=== PATIENT | male | born 1955 | race Caucasian/White ===

== ENCOUNTER 2020-07-06 09:16 | Outpatient (REF) | payer OTHER, SELFPAY ==
[2020-07-06 12:17] LABS: Microalbum/Creatinine Ratio Ur 85.7 ug/mg cr
[2020-07-06 12:44] LABS: Alanine Aminotransferase 32 U/L (0-40); Albumin Level 4.4 g/dL (3.5-5.0); Alkaline Phosphatase 76 U/L (39-117); Anion Gap 15 (12-20); Aspartate Amino Transferase 20 U/L (5-37); Bilirubin Total 1.2 mg/dL (0.0-1.0); Blood Urea Nitrogen 20 mg/dL (9-16); Carbon Dioxide 24 mmol/L (22-29); Chloride 100 mmol/L (96-108); Cholesterol 184 mg/dL; Estimated Glomerular Filt Rate > 60; Glucose Fasting 286 mg/dL (60-99); HDL Cholesterol 35 mg/dL; LDL Cholesterol Calculated 116 mg/dl; Potassium 4.4 mmol/L (3.3-5.1); Sodium 135 mmol/L (135-145); Total Protein 7.6 g/dL (6.5-8.0); Triglycerides 166 mg/dL
[2020-07-06 12:45] LABS: Prostate Specific Antigen Scr 2.53 ng/mL (<0.05-4.0); TSH reflex Free T4 1.09 uIU/mL (0.32-4.0)
== END 2020-07-06 09:17 | disposition home or self-care (01) ==
LOC: HO.WFDLDS 09:16
PROVIDERS: Visit Provider Family Medicine
DX: Z00.00 Encounter for general adult medical examination without abnormal findings (principal); E11.9 Type 2 diabetes mellitus without complications; I10 Essential (primary) hypertension; Z12.5 Encounter for screening for malignant neoplasm of prostate
CPT/HCPCS: 36415; 80053; 80061; 82043; 84153; 84443

== ENCOUNTER → 2020-07-20 11:09 | Outpatient (BNVA) | payer OTHER, SELFPAY | PROVIDERS: PCP Family Medicine; Visit Provider Physician Assistant ==

== ENCOUNTER 2020-09-09 09:43 | Day surgery (SDC) | payer OTHER, SELFPAY ==
[2020-09-03 10:22] VITALS: BMI 32.8
--- NOTE | 2020-09-07 15:17 | HO.ANESPROP2 ---
Documented by User: Jasmyne Damon 09/07/20 15:20 HPI - Anesthesia Eval Consult details Narrative: 64yo M for Upper Endoscopy and Colonoscopy with Cotton PMFSH Active Problems Active Problems: All Active Problems (Updated 09/02/20 @ 14:19 by Peggy Gibson) Laboratory examination ordered as part of a routine general medical examination (Acute) Diabetes type 2, controlled (Acute) Sleep apnea (Acute) Colon polyps (Acute) Barretts esophagus (Acute) COPD (chronic obstructive pulmonary disease) (Acute) Insomnia (Acute) Screening for prostate cancer (Acute) Former smoker (Acute) Exposure to asbestos (Acute) Annual physical exam (Acute) Hyperlipidemia (Acute) Class 1 obesity with body mass index (BMI) of 32.0 to 32.9 in adult (Acute) Paronychia of finger (Acute) Tetanus toxoid inoculation (Acute) Barretts esophagus (Acute) Colon polyps (Acute) Past Medical History Medical History Barretts esophagus Class 1 obesity with body mass index (BMI) of 32.0 to 32.9 in adult Colon polyps COPD (chronic obstructive pulmonary disease) Diabetes Elevated cholesterol Sleep apnea Family History Family History Father No problems noted. Mother No problems noted. Daughter Breast cancer Surgical History Surgical History History of cholecystectomy Social History Social History Household Members: Spouse Household Members Other:: Raising 6 &10-y/0 grandchildren- of his daughter @34 breast CA Alcohol intake: never Advance Directives Information Provided: No Current occupational status: retired Meds Allergies Allergy/AdvReac Type Severity Reaction Status Date / Time No Known Allergies Allergy Verified 09/09/20 10:26 Home Medications Medication Instructions Recorded Confirmed Last Taken Type atorvastatin 40 mg tablet 40 mg PO DAILY 06/23/20 09/03/20 Unknown History blood sugar diagnostic #10 ea 06/23/20 07/20/20 Unknown History empagliflozin 10 mg tablet 10 mg PO DAILY 06/23/20 09/03/20 Unknown History metformin 500 mg tablet 1,000 mg PO BID 06/23/20 09/03/20 Unknown History omeprazole 40 mg capsule,delayed 40 mg PO DAILY 06/23/20 09/03/20 Unknown History release pen needle, diabetic 32 gauge x #50 ea 06/23/20 07/20/20 Unknown History sertraline 50 mg tablet 50 mg PO DAILY 06/23/20 09/03/20 Unknown History insulin glargine U-300 conc unit SUBCUT 09/09/20 09/09/20 Unknown History [Toujeo Max U-300 SoloStar] Exam Exam Date and Time: September 07, 2020 151 Height,Weight and Vital Signs: Height 5 ft 10 in Weight 103.589 kg Pertinent Lab Results Pertinent Lab Results: Laboratory Tests 07/06/20 09:25 Sodium 135 Potassium 4.4 Chloride 100 Carbon Dioxide 24 BUN 20 H Creatinine 0.89 Assessment and Plan Assessment Anesthesia Assessment: Chart Reviewed Documented by User: David Jacobsen MD 09/09/20 10:27 [facility] Past Medical History Medical History Barretts esophagus Class 1 obesity with body mass index (BMI) of 32.0 to 32.9 in adult Colon polyps COPD (chronic obstructive pulmonary disease) Diabetes Elevated cholesterol Sleep apnea Family History Family History Father No problems noted. Mother No problems noted. Daughter Breast cancer Surgical History Surgical History History of cholecystectomy Social History Social History Household Members: Spouse Household Members Other:: Raising 6 &10-y/0 grandchildren- of his daughter @34 breast CA Alcohol intake: never Advance Directives Information Provided: No Current occupational status: retired [employer] Allergies Allergy/AdvReac Type Severity Reaction Status Date / Time No Known Allergies Allergy Verified 09/09/20 10:26 Home Medications Medication Instructions Recorded Confirmed Last Taken Type atorvastatin 40 mg tablet 40 mg PO DAILY 06/23/20 09/03/20 Unknown History blood sugar diagnostic #10 ea 06/23/20 07/20/20 Unknown History empagliflozin 10 mg tablet 10 mg PO DAILY 06/23/20 09/03/20 Unknown History metformin 500 mg tablet 1,000 mg PO BID 06/23/20 09/03/20 Unknown History omeprazole 40 mg capsule,delayed 40 mg PO DAILY 06/23/20 09/03/20 Unknown History release pen needle, diabetic 32 gauge x #50 ea 06/23/20 07/20/20 Unknown History sertraline 50 mg tablet 50 mg PO DAILY 06/23/20 09/03/20 Unknown History insulin glargine U-300 conc unit SUBCUT 09/09/20 09/09/20 Unknown History [Toujeo Max U-300 SoloStar] Exam Airway Mallampati Class: II TM Dist: >3cm Neck ROM: Full Loose/Missing/Broken Teeth: No Heart: RRR Assessment and Plan Assessment Anesthesia Assessment: Anesthesia Plan Discussed and Chart Reviewed Final Anesthetic Review NPO: Yes ASA Class: III Final Preanesthetic Review: No Changes in Pt Med Stat, Meds/Allgs Chart Reviewed, Consent Obtained/Reviewed and Anes Risks/Benef Reviewed Patient Risk: Low Procedure Risk: Low Anesthetic Plan Anesthetic Plan: MAC: Disposition: Standard PACU
[2020-09-09 10:30] VITALS: BP 126/75; PULSE 90; RESP 18; TEMP 36.2; O2SAT 97
[2020-09-09 10:33] LABS: Glucose, Whole Blood 115 mg/dL (60-115)
--- NOTE | 2020-09-09 10:35 | MHC.SHP ---
Pre-Procedural Eval Section B Chief Complaint: hx colonic polyps,stuart's Relevant Family History (Specify if Yes): No Relevant Social History: None Present Medications: see Short Stay Collaborative assessment Medical History: Significant History (Barretts esophagus Class 1 obesity with body mass index (BMI) of 32.0 to 32.9 in adult Colon polyps COPD (chronic obstructive pulmonary disease) Diabetes Elevated cholesterol Sleep apnea) History of Previous Operations: Relevant previous surgery/procedure and date(s) (cholecystectomy) Allergies: Allergies Allergy/AdvReac Type Severity Reaction Status Date / Time No Known Allergies Allergy Verified 09/09/20 10:26 Review of Systems Sugical H&P ROS: Negative: Constitution, Cardiovascular, Respiratory, Neurological, Psychiatric, Hem-Onc, Allergic/Immunologic, Gastrointestinal, Genitourinary, Musculoskeletal, Integumentary, Endocrine and Eyes/Ears/Nose/Throat Exam Surgical H&P Exam: Normal: HEENT, Normal: Heart, Normal: Lungs, Normal: Extremities, Normal: Abdomen, Normal: Skin and Normal: Neurological Plan Diagnosis/Plan: Unchanged I have reviewed the history and physical and performed a pertinent physical examination on my patient. No changes have occurred unless specified.
[2020-09-09] MEDS: Lactated Ringers 1,000 ML 100 ML IVCONT (10:48)
--- NOTE | 2020-09-09 11:19 | P.BOP_ITS ---
Brief Operative Note Date of Service: 09/09/20 Pre-op diagnosis: barretts, hx of polyps Post-op diagnosis: same Procedure: see op note Surgeon: Sammi Cardona MD Anesthesia: MAC Was an Manager Physical used for this Procedure?: No Estimated blood loss (mL): 0 Condition: stable Disposition: PACU
--- NOTE | 2020-09-09 11:20 | P.OP_ITS ---
Operative Note Operative Note Date of Service: 09/09/20 Narrative: Operative Information Procedure Description: EGD, Colonoscopy FLEXIBLE TRANSORAL UPPER GASTROINTESTINAL ENDOSCOPY AND COLONOSCOPY PROCEDURE NOTE UPPER ENDOSCOPY Consent: Indications for the procedure and potential complications of bleeding, perforation, reaction to medications and missed diagnosis were discussed with the patient and informed consent was obtained. Instrument: Olympus GIF H 190 J mid size upper endoscope Monitoring: Vital signs and clinical assessment, continuous EKG monitoring, Pulse oximetry, Carbon Dioxide monitoring and blood pressure monitoring were done throughout the procedure. Procedure: The patient was placed in the left lateral decubitis position and pre-procedure medications were administered and a bite block was placed. The endoscope was inserted into the mouth and advanced under direct vision to the third part of duodenum. A careful inspection was made as the upper endoscope was withdrawn including a retroflexed examination of the proximal stomach; Findings and interventions are described below. Findings: Larynx:normal Esophagus: GE junction at 38 cm, diaphragm hiatus at 40 cm, consistent with 2 cm sliding hiatal hernia. islands of salmon pink mucosa noted, WATS brushings taken as well as biopsy. There was some streaky erythema consistent with LA grade B esophagitis. Stomach: Patchy erythema. Biopsies were obtained. Grade 2 flap valve on retroflexed examination of the cardia. Duodenum: Normal bulb and descending duodenum, Intervention: Biopsies as noted above, brushings for WATS3D COLONOSCOPY Instrument: Olympus variable stiffness pediatric scope 190L Colonoscopy Monitoring: Vital signs and clinical assessment, continuous EKG monitoring, Pulse oximetry, Carbon Dioxide monitoring and blood pressure monitoring were done throughout the procedure. Colon withdrawal time was 12 minutes. Procedure: The patient was placed in the left lateral decubitis position and pre-procedure medications were administered. After a digital rectal examination of the ano-rectum, the video colonoscope was inserted into the rectum and advanced through the colon to the cecum/TI. The colonoscope was slowly withdrawn in a retrograde panoramic fashion and the colon mucosa was carefully examined including a retroflexed view of the rectum. Findings and interventions are described below. Procedure Difficulty:moderate Findings: Terminal Ileum-normal Cecum: 5-6 mm sessile polyp removed with forceps Ascending Colon: normal Transverse Colon -normal Descending Colon:normal Sigmoid Colon: 8-9 mm sessile polyp removed with snare, cold, mild diverticulosis noted Rectum: Retroflexion with small internal hemorrhoids, grade I, x2 sessile polyps 6-9 mm removed with cold snare. Anorectum - normal Colon preparation: Fowler Bowel Preparation Scale Right colon; 2 Transverse colon: 2 Left colon; 2 (0 = Unprepared colon segment with mucosa not seen due to solid stool that cannot be cleared. 1 = Portion of mucosa of the colon segment seen, but other areas of the colon segment not well seen due to staining, residual stool and/or opaque liquid. 2 = Minor amount of residual staining, small fragments of stool and/or opaque liquid, but mucosa of colon segment seen well. 3 = Entire mucosa of colon segment seen well with no residual staining, small fragments of stool or opaque liquid) Impression and Post Procedure Diagnosis: Endoscopy Findings: barretts esophagus hiatal hernia esophagitis gastritis Colonoscopy Findings: polyps internal hemorrhoids diverticular disease Plan: Await Pathology results Repeat Colonoscopy in 5 years or earlier if clinically indicated High fiber diet leaflet avoid straining at stool, epsom salts and sitz bath, anusol supps or cream prn eval clinical sx of GERD, if symptomatic then change PPI to pantoprazole repeat EGD pending path, if no dysplasia then 3 yrs Above findings were reviewed with the patient and relevant handouts were provided if indicated.
[2020-09-09 12:29] VITALS: BP 91/55; PULSE 76; RESP 16; TEMP 36.6; O2SAT 99
[2020-09-09 12:44] VITALS: BP 105/64; PULSE 83; RESP 18; TEMP 36.7; O2SAT 97
[2020-09-09 12:49] VITALS: BP 104/54; PULSE 85; RESP 18; O2SAT 97
== END 2020-09-09 13:20 | disposition home or self-care (01) ==
PROVIDERS: PCP Family Medicine; Visit Provider Internal Medicine Gastroenterology
PROC: (CPT 45385; principal; 2020-09-09 11:20)
DX: Z12.11 Encounter for screening for malignant neoplasm of colon (principal); Z86.010 Personal history of colon polyps; D12.5 Benign neoplasm of sigmoid colon; K63.5 Polyp of colon; K62.1 Rectal polyp; K57.30 Diverticulosis of large intestine without perforation or abscess without bleeding; K64.0 First degree hemorrhoids; K22.70 Barrett's esophagus without dysplasia; K29.50 Unspecified chronic gastritis without bleeding; K20.80 Other esophagitis without bleeding; K44.9 Diaphragmatic hernia without obstruction or gangrene; J44.9 Chronic obstructive pulmonary disease, unspecified; G47.30 Sleep apnea, unspecified; E11.9 Type 2 diabetes mellitus without complications; E66.9 Obesity, unspecified; Z68.32 Body mass index [BMI] 32.0-32.9, adult; Z79.4 Long term (current) use of insulin; Z79.51 Long term (current) use of inhaled steroids; Z90.49 Acquired absence of other specified parts of digestive tract; Z79.899 Other long term (current) drug therapy; Z87.891 Personal history of nicotine dependence
CPT/HCPCS: 45385; 45380; 43239; 82947; 88305; 88342

== ENCOUNTER → 2020-09-21 11:58 | Outpatient (BNVA) | payer OTHER, SELFPAY | PROVIDERS: Visit Provider Physician Assistant ==

== ENCOUNTER 2020-11-02 10:44 | Outpatient (REF) | payer MEDICARE, OTHER, SELFPAY ==
[2020-11-02 13:29] LABS: MANUAL DIFF FLAG NO
[2020-11-02 13:34] LABS: Basophils Percent Auto 0.4 % (0-2); Eosinophils Absolute Auto 0.2 X10*3/uL (0.0-0.4); Eosinophils Percent Auto 1.5 % (0-4); Hematocrit 44.1 % (42-52); Hemoglobin 14.1 g/dl (14.0-18.0); Imm Gran Abs Auto 0.06 X10*3/uL (0.00-0.03); Imm Gran Pct Auto 0.6 % (0.0-0.4); Lymphocytes Absolute Auto 1.2 X10*3/uL (1.2-4.9); Lymphocytes Percent Auto 12.4 % (20-40); Mean Corpuscular Hemoglobin 27.8 pg (27.0-33.0); Mean Corpuscular Volume 86.8 fL (80-98); Mean Platelet Volume 10.8 fL (9.4-12.4); Monocytes Absolute Auto 0.8 X10*3/uL (0.1-1.2); Monocytes Percent Auto 7.9 % (2-11); Neutrophils Absolute Auto 7.8 X10*3/uL (2.0-8.3); Neutrophils Percent Auto 77.2 % (45-73); Platelet Count 258 X10*3/uL (160-400); Red Blood Count 5.08 X10*6/uL (4.60-5.80); Red Cell Distribution Width 12.9 % (11.0-16.0)
[2020-11-02 13:42] LABS: Alanine Aminotransferase 27 U/L (0-40); Albumin Level 4.4 g/dL (3.5-5.0); Alkaline Phosphatase 98 U/L (39-117); Anion Gap 14 (12-20); Aspartate Amino Transferase 22 U/L (5-37); Bilirubin Total 0.7 mg/dL (0.0-1.0); Blood Urea Nitrogen 18 mg/dL (9-16); Calcium 10.3 mg/dL (8.4-10.2); Carbon Dioxide 29 mmol/L (22-29); Chloride 99 mmol/L (96-108); Estimated Glomerular Filt Rate > 60; Glucose Random 147 mg/dL (60-115); Potassium 5.2 mmol/L (3.3-5.1); Sodium 137 mmol/L (135-145); Total Protein 8.5 g/dL (6.5-8.0)
== END 2020-11-02 10:45 | disposition home or self-care (01) ==
LOC: HO.WFDLDS 10:44
PROVIDERS: Visit Provider Physician Assistant
DX: R10.11 Right upper quadrant pain (principal)
CPT/HCPCS: 36415; 80053; 85025

== ENCOUNTER 2020-11-03 09:04 | Outpatient (REF) | payer MEDICARE, OTHER, SELFPAY | END 2020-11-03 09:05 | disposition home or self-care (01) | LOC: HO.WFDLDS 09:04 | PROVIDERS: PCP Family Medicine; Visit Provider Physician Assistant Medical | DX: R10.9 Unspecified abdominal pain (principal) | CPT/HCPCS: 87338 ==

== ENCOUNTER 2020-11-23 09:15 | Outpatient (REF) | payer MEDICARE, OTHER, SELFPAY ==
--- NOTE | ~2020-11-23 | US_ITS ---
EXAMINATION: US ABDOMEN COMPLETE CLINICAL INFORMATION: Abdominal pain. COMPARISON: None TECHNIQUE: Real-time imaging of the abdominal viscera. FINDINGS: PANCREAS: There is a heterogeneous hypoechoic lesion posterior to the head of the pancreas measuring 7.5 x 4.3 x 3.4 cm, question lymph node versus duodenal diverticulum. The pancreas itself is otherwise unremarkable. ABDOMINAL AORTA: The proximal, mid, and distal segments are normal in caliber. INFERIOR VENA CAVA: Visualized portions are normal. LIVER: The liver is normal in size. The liver contour is normal. Parenchymal echogenicity is normal. There is a hypoechoic heterogeneous lesion right hepatic lobe measuring 8.4 x 7.5 cm with vascular flow. There is a small heterogeneous lesion adjacent to it. There is no intrahepatic biliary duct dilatation seen. GALLBLADDER: Normal. The gallbladder is physiologically distended without evidence of stones, sludge, polyps, wall thickening, or pericholecystic fluid. COMMON BILE DUCT: Normal in caliber measuring 0.7 cm in diameter. RIGHT KIDNEY: In the midpole, there is an anechoic cyst measuring 4.2 x 2.9 x 3.3 cm and 2.2 x 2.7 x 2.6 cm. A third anechoic cyst in the midpole measures 1.8 x 1.8 x 2.1 cm. No hydronephrosis. No renal calculi or focal parenchymal lesions. The kidney measures 12.7 cm in maximum dimension. LEFT KIDNEY: No hydronephrosis. No renal calculi or focal parenchymal lesions. The kidney measures 12.4 cm in maximum dimension. There is an anechoic cyst in the lower pole measuring 1.8 x 1.8 x 1.7 cm. SPLEEN: The spleen measures 12.8 cm in maximum dimension. FREE FLUID: None. US/US abdomen complete IMPRESSION: Mass posterior head of the pancreas, likely a lymph node or a duodenal diverticulum. Heterogeneous lesion in the right hepatic lobe posterior segment measuring 8.4 cm. Bilateral renal cysts. No echogenic stones or hydronephrosis. Recommend CT of the liver and the pancreas with and without contrast.
== END 2020-11-23 09:16 | disposition home or self-care (01) ==
LOC: HO.US 09:15
PROVIDERS: PCP Family Medicine; Visit Provider Physician Assistant Medical
DX: R10.9 Unspecified abdominal pain (principal)
CPT/HCPCS: 76700

== ENCOUNTER 2020-12-16 11:02 | Outpatient (REF) | payer MEDICARE, OTHER, SELFPAY ==
[2020-12-16 14:03] LABS: MANUAL DIFF FLAG NO
[2020-12-16 14:08] LABS: Glucose Urine UA 250 MG/DL (NEG); Leukocyte Esterase Urine NEG (NEG); Nitrite Urine NEG (NEG); Specific Gravity - Urine 1.025 (1.005-1.025); Urine Blood NEG (NEG); Urine Ketones NEG (NEG); Urine Protein TRACE MG/DL (NEG-TRACE)
[2020-12-16 14:09] LABS: Basophils Percent Auto 0.2 % (0-2); Eosinophils Absolute Auto 0.2 X10*3/uL (0.0-0.4); Eosinophils Percent Auto 2.3 % (0-4); Hematocrit 37.5 % (42-52); Hemoglobin 12.3 g/dl (14.0-18.0); Imm Gran Abs Auto 0.06 X10*3/uL (0.00-0.03); Imm Gran Pct Auto 0.7 % (0.0-0.4); Lymphocytes Absolute Auto 1.3 X10*3/uL (1.2-4.9); Lymphocytes Percent Auto 14.5 % (20-40); Mean Corpuscular HGB Conc 32.8 g/dl (31.0-36.0); Mean Corpuscular Volume 85.2 fL (80-98); Mean Platelet Volume 10.9 fL (9.4-12.4); Monocytes Absolute Auto 0.8 X10*3/uL (0.1-1.2); Monocytes Percent Auto 8.9 % (2-11); Neutrophils Absolute Auto 6.7 X10*3/uL (2.0-8.3); Neutrophils Percent Auto 73.4 % (45-73); Platelet Count 221 X10*3/uL (160-400); Red Cell Distribution Width 13.2 % (11.0-16.0); White Blood Count 9.1 X10*3/uL (4.8-10.8)
[2020-12-16 14:11] LABS: Appearance Urine CLEAR; Color Urine YELLOW
[2020-12-16 14:28] LABS: Alanine Aminotransferase 47 U/L (0-40); Albumin Level 4.2 g/dL (3.5-5.0); Alkaline Phosphatase 125 U/L (39-117); Anion Gap 9 (12-20); Aspartate Amino Transferase 30 U/L (5-37); Bilirubin Direct 0.2 mg/dL (0.0-0.5); Bilirubin Total 0.6 mg/dL (0.0-1.0); Blood Urea Nitrogen 20 mg/dL (9-16); Calcium 10.2 mg/dL (8.4-10.2); Carbon Dioxide 31 mmol/L (22-29); Chloride 102 mmol/L (96-108); Estimated Glomerular Filt Rate > 60; Glucose Random 177 mg/dL (60-115); Potassium 4.9 mmol/L (3.3-5.1); Sodium 137 mmol/L (135-145); Total Protein 7.8 g/dL (6.5-8.0)
== END 2020-12-16 11:03 | disposition home or self-care (01) ==
LOC: HO.WFDLDS 11:02
PROVIDERS: Physician Assistant Medical; Visit Provider Family Medicine
DX: Z00.00 Encounter for general adult medical examination without abnormal findings (principal); R10.9 Unspecified abdominal pain; R93.2 Abnormal findings on diagnostic imaging of liver and biliary tract
CPT/HCPCS: 36415; 80053; 80076; 81003; 82248; 85025

== ENCOUNTER 2020-12-21 09:18 | Outpatient (REF) | payer MEDICARE, OTHER, SELFPAY ==
--- NOTE | ~2020-12-21 | CT_ITS ---
EXAMINATION: CT ABDOMEN AND PELVIS WITH CONTRAST CLINICAL INFORMATION: Abdominal pain. COMPARISON: Abdominal ultrasound November 2020 TECHNIQUE: Multidetector volumetric images were obtained from the superior aspect of the liver through the pubic symphysis following administration 85 mL of Omnipaque 350 intravenous contrast. Sagittal and coronal reformatted images were obtained on the technologist's workstation. Oral contrast: Yes. This CT examination was performed using dose optimization techniques as appropriate, variously including the following: *Automated exposure control *Adjustment of mA and/or kV according to patient size (this includes techniques or standardized protocols for targeted exams where dose is matched to indication/reason for exam; i.e. extremities or head) *Use of iterative reconstruction technique DLP: 486 mGy-cm FINDINGS: LUNG BASES: There is abnormal soft tissue inferior to the right 10th and 11th ribs. The largest area is inferior to the right 10th rib and measures 1.3 x 3 cm. This is along the course of the nerve roots. No adjacent bone remodeling is seen. LIVER, GALLBLADDER, AND BILIARY TREE: The liver is enlarged. There is an 8 cm low-attenuation lesion high in the dome in the right lobe of the liver axial image 23 series 3. There are surrounding smaller satellite lesions, the largest measuring 2 cm axial image 29 series 3. There is question of extension to the right side of the diaphragm versus diaphragmatic pleural thickening or nodule laterally axial image 26 series 3 and posteriorly axial image 33 series 3.. The gallbladder has been removed. There is no biliary duct dilatation. PANCREAS: Unremarkable. SPLEEN: Unremarkable. ADRENAL GLANDS: Unremarkable. KIDNEYS AND URETERS: There are bilateral renal cysts. The largest right renal cyst measures 4 cm in the upper pole. The largest left renal cyst measures 1.4 cm in the lower pole. The kidneys are otherwise unremarkable. BLADDER: Unremarkable. GASTROINTESTINAL TRACT: The stomach is not optimally distended. There is a small esophageal hernia. There is question of a soft tissue mass in the junction of the 2nd to 3rd portion of the duodenum adjacent to the pancreatic head. This measures approximately 3 cm axial image 32 series 3, coronal reconstructed image 40 and sagittal reconstructed image 72. There is mild diverticulosis of the colon. The small and large bowel is otherwise unremarkable. The appendix is unremarkable. ABDOMINAL WALL: No significant hernia is appreciated. LYMPH NODES: There are enlarged periportal and upper abdominal retroperitoneal and gastrohepatic space lymph nodes. Largest lymph nodes are an aortocaval lymph node measuring 2.4 x 3.3 cm and periportal lymph node measuring 3.5 cm. There is no ascites. VASCULAR: There is evidence of atherosclerotic disease. No aneurysm is seen. PELVIC VISCERA: Unremarkable. OSSEOUS STRUCTURES: There are degenerative changes of the spine. There is a lytic lesion in the left S1 vertebral body measuring 2.4 cm axial image [address]/CT abdomen pelvis w con IMPRESSION: Enlarged liver with multiple lesions suggestive of metastatic disease. Enlarged necrotic-appearing periportal, upper abdominal retroperitoneal and gastrohepatic space lymph nodes. Question mass in the duodenum. Correlation with endoscopy recommended. Soft tissue masses inferior to the right T10 and T11 ribs along the course of the nerve roots. It is uncertain whether this represents a primary neurogenic lesion or could represent metastatic disease. This could be better evaluated with MRI. Question metastatic of involvement of the right side of the diaphragm and left S1 vertebral body. Diverticulosis. Bilateral renal cysts.
[2020-12-21] MEDS: iohexoL 350 MG/ML 100 ML INFUS..BTL 85 ML IV (10:08)
== END 2020-12-21 09:19 | disposition home or self-care (01) ==
LOC: HO.CT 09:18
PROVIDERS: Visit Provider Family Medicine
DX: R10.9 Unspecified abdominal pain (principal)
CPT/HCPCS: 74177; Q9967

== ENCOUNTER 2021-01-03 09:13 | Day surgery (SDC) | payer MEDICARE, OTHER, SELFPAY ==
[2021-01-03] VITALS (8 sets, daily range): BP systolic 99–123; BP diastolic 49–80; PULSE 74–90; RESP 16–18; TEMP 35.9–36.6; O2SAT 96–98; BMI 30.2
--- NOTE | ~2021-01-03 | US_ITS ---
EXAMINATION: US GUIDED LIVER BIOPSY CLINICAL INFORMATION: Liver lesion. COMPARISON: Previous CT of the abdomen and pelvis December 2020 TECHNIQUE: Procedure and risks and benefits including bleeding and infection were discussed with the patient and informed consent was obtained. Right upper quadrant was prepped and draped in the usual sterile fashion. The skin and soft tissues were anesthetized with 1% lidocaine plain. Using ultrasound guidance and a coaxial system, access to the lesion in the right lobe of the liver was obtained. Four 20-gauge core biopsies were obtained. There was no complication. Patient received Versed 1 mg and fentanyl 50 mcg intravenously during the procedure. Total sedation time was 12 minutes. FINDINGS: There is a 9 cm mass in the right lobe of the liver that was targeted for biopsy. US/US biopsy liver IMPRESSION: Ultrasound-guided liver biopsy.
[2021-01-03 09:46] LABS: Glucose, Whole Blood 93 mg/dL (60-115)
[2021-01-03] MEDS: Lidocaine HCl 1 % MPF 5 ML VIAL SUBCUT (11:39)
--- NOTE | 2021-01-03 11:50 | HO.RADPN ---
RADIOLOGY Narrative Narrative: Right lobe liver biopsy performed using coaxial system. 4 20g core biopsies form right lobe liver lesion obtained
== END 2021-01-03 13:50 | disposition home or self-care (01) ==
PROVIDERS: Radiology Diagnostic Radiology; PCP Family Medicine; Visit Provider Internal Medicine
DX: C22.7 Other specified carcinomas of liver (principal)
CPT/HCPCS: 47000; 76942; 82947; 88307; 88313; 88341; 88342; 99152; J2250; J3010

== ENCOUNTER 2021-01-11 10:15 | Outpatient (REF) | payer MEDICARE, OTHER, SELFPAY ==
--- NOTE | ~2021-01-11 | CT_ITS ---
EXAMINATION: CT CHEST WITH CONTRAST CLINICAL INFORMATION: Liver cancer. Staging. COMPARISON: Liver mass that measures 8 x 9 cm in the posterior segment of the right lobe of the liver TECHNIQUE: Multidetector volumetric CT imaging of the chest was obtained after the administration of 65 mL of Omnipaque 350 intravenous contrast without immediate adverse reactions. Axial MIP volume rendering provided. Sagittal and coronal reformatted images were obtained. This CT examination was performed using dose optimization techniques as appropriate, variously including the following: *Automated exposure control *Adjustment of mA and/or kV according to patient size (this includes techniques or standardized protocols for targeted exams where dose is matched to indication/reason for exam; i.e. extremities or head) *Use of iterative reconstruction technique DLP: 161 mGy-cm FINDINGS: LUNGS: There is a 3 mm peripheral or subpleural right middle lobe nodule adjacent to the minor fissure axial image 90 series 7. There is a 2 mm question calcified left lower lobe nodule axial image 93 series 7 there is a 4 mm peripheral or subpleural left lower lobe nodule adjacent to the fissure axial image 100 series 7 MEDIASTINUM: There are small mediastinal and right hilar lymph nodes. There are small right anterior diaphragmatic or cardiophrenic angle lymph nodes, largest measuring 8 mm in short axis axial image 45 series 3. The heart does not appear enlarged. There is coronary artery calcification. The thoracic aorta is normal in caliber. There may be a small esophageal hernia. PLEURA: There is no pleural effusion. There are pleural-based soft tissue masses inferior to the right 10th and 11th ribs. This appears unchanged from previous CT scan of the abdomen and pelvis. AXILLA: No lymphadenopathy. UPPER ABDOMEN: There is a large mass/masses in the right lobe of liver. There is a peritoneal or mass or mass adjacent to the posterior diaphragmatic pleural surface axial image 67 series 3. There are enlarged periportal and retroperitoneal lymph nodes. These findings do not appear appreciably changed from abdominal pelvic CT scan. The gallbladder has been removed. There is a right renal cyst. OSSEOUS STRUCTURES: There is bone loss or erosive change of the right medial inferior 11th rib adjacent to the soft tissue mass for example coronal reconstructed image 82. There are degenerative changes of the spine. CT/CT chest w con IMPRESSION: 3 small pulmonary nodules or micronodules, largest measuring 4 mm in the left lower lobe. Coronary artery calcification. Right posterior pleural or chest wall masses inferior to the right 10th and 11th ribs. Stable abdominal findings from 12/21/2020 CT scan.
[2021-01-11] MEDS: iohexoL 350 MG/ML 100 ML INFUS..BTL 65 ML IV (11:46)
== END 2021-01-11 10:16 | disposition home or self-care (01) ==
LOC: HO.CT 10:15
PROVIDERS: PCP Family Medicine; Visit Provider Internal Medicine
DX: R16.0 Hepatomegaly, not elsewhere classified (principal); R59.0 Localized enlarged lymph nodes
CPT/HCPCS: 71260; Q9967

== ENCOUNTER 2021-03-15 14:16 | Outpatient (REF) | payer MEDICARE, OTHER, SELFPAY ==
--- NOTE | ~2021-03-15 | XR_ITS ---
EXAMINATION: XR CHEST CLINICAL INFORMATION: Other specified symptoms and signs involving respiratory system COMPARISON: Previous chest CT December 2020 TECHNIQUE: 2 views of the chest were obtained. FINDINGS: The cardiac and mediastinal contours are normal in the lungs are clear. There is no pleural effusion or pneumothorax. There is a right jugular port with tip projecting over the SVC. There are degenerative changes of the spine. XR/XR chest 2V IMPRESSION: No evidence for acute disease in the chest.
[2021-03-15 18:52] LABS: Influenza A PCR NEGATIVE (Negative); Influenza B PCR NEGATIVE (Negative); Resp Syncy Virus RNA Qual PCR NEGATIVE (Negative); SARS COV2 PCR INHOUSE POSITIVE (Negative)
== END 2021-03-15 14:17 | disposition home or self-care (01) ==
LOC: HO.HMGCX 14:16
PROVIDERS: PCP Family Medicine; Visit Provider Family Medicine
DX: Z20.822 Contact with and (suspected) exposure to COVID-19 (principal); R09.89 Other specified symptoms and signs involving the circulatory and respiratory systems; R50.9 Fever, unspecified
CPT/HCPCS: 0241U; 36415; 71046